=== PATIENT | female | born 1990 | race Caucasian/White ===

== ENCOUNTER → 2019-07-05 | Outpatient (CLI) | payer OTHER | LOC: M.CT 11:23 | DX: R07.9 Chest pain, unspecified (principal); R06.02 Shortness of breath; R00.2 Palpitations; Z88.2 Allergy status to sulfonamides; Z88.8 Allergy status to other drugs, medicaments and biological substances ==

== ENCOUNTER → 2019-09-20 | Outpatient (CLI) | payer OTHER ==
[2019-09-20] VITALS (13 sets, daily range): BP systolic 100–137; BP diastolic 60–86
--- NOTE | 2019-09-28 18:30 | CARD ---
[address] [address] CARDIAC CATH REPORT Name: DEZ ZAFAR Room: [facility]#: [id number] Admission: 09/20/19 Attend Phys: Amol Bass MD Discharge: Date of : 89 Report #: [id number] THIS REPORT FOR: //name// CC: Dr. Andrez Barr DO DATE OF SERVICE: 09/20/2019 REFERRING PHYSICIAN: Peter Barr DO PROCEDURE: Tilt-table test. PROCEDURE DESCRIPTION: After informed consent was obtained, the patient was brought to the cardiac holding area. Orthostatic blood pressures were checked and were unremarkable. The patient was then placed on the tilt table. The tilt table was placed in the 70-degree head upright position. The patient's initial blood pressure was 119/78 mmHg with a pulse rate of 101 beats per minute. The patient was observed for 20 minutes in the 70-degree head upright position. She had no significant change in blood pressure or pulse rate. At the end of an initial 20-minute phase, the patient was given sublingual nitroglycerin. With this, she had a drop in her blood pressure to 100/65 mmHg and an appropriate increase in her heart rate to 138 beats per minute. The patient had some mild feelings of lightheadedness, but no syncope. At the end of 20 minutes, the test was terminated. The patient's blood pressure at this time was 124/60 mmHg with a pulse rate of 88 beats per minute. IMPRESSION: 1. Palpitations. 2. Tilt-table test shows no evidence of vasodepressor syncope. CONCLUSION: This is a normal tilt table response. <ELECTRONICALLY SIGNED> By: Amol Bass MD, FACC 09/28/19 1830 1529 [id number] Bass MD, FACC /nt
== END | disposition home or self-care (01) ==
LOC: M.CL 09:03
DX: R00.2 Palpitations (principal)

== ENCOUNTER → 2019-12-27 | Outpatient (CLI) | payer OTHER ==
[2019-12-27 12:33] LABS: CSF GLUCOSE 61 mg/dl (40-70); CSF PROTEIN 34.6 mg/dl (15-45)
[2019-12-27 13:03] LABS: VOLUME 17 ml
[2019-12-27 13:06] LABS: CSF RBC 3650 /mm3; CSF WBC 1 /mm3 (0-10)
[2019-12-28 02:07] LABS: IgA 109 mg/dL (87-352); IgG 1007 mg/dL (700-1600); IgM 83 mg/dL (26-217)
[2019-12-28 23:06] LABS: GLOBULIN TOTAL 3.4 g/dL (2.2-3.9); M-SPIKE Not Observed g/dL (Not Observed)
[2019-12-31 12:11] LABS: CSF ALBUMIN 10 mg/dL (11-48); CSF IGG INDEX 0.6 (0.0-0.7); CSF IgG 1.4 mg/dL (0.0-8.6); CSF/SERUM ALBUMIN INDEX 2 (0-8)
--- NOTE | 2020-01-04 17:07 | PATH ---
[address] [address] PATHOLOGY RPT PROCEDURE Name: ZAFARDEZ N Room: [facility]#: [id number] Admission: 12/27/19 Date of : 89 Discharge: Report #: [id number] Path Case #: [id number] Note [facility] Accession Number: [id number] TESTS RESULT FLAG UNITS REF RANGE LAB Clinician Provided Cytology Information No. of containers..01 Other (Miscellaneous) Source: CSF DIAGNOSIS: 02 CSF NEGATIVE FOR MALIGNANT CELLS. 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 Signed out by: 02 Sammy Huizar MD, Pathologist NPI- [id number] Performed by: 01 Caron Washington, Driver'S License Reviewing Officer ([facility]) Gross description: 01 2 ML, COLORLESS, CLEAR /LCS 01/03/2020 1822 Local FLAG LEGEND: L-Low Normal,H-High Normal,LL-Alert Low,HH-Alert High <-Panic Low,>-Panic High,A-Abnormal,AA-Critical Abnormal Performed at: [address] [place] [address] Moncho Greer MD, [address] [place] [address] [place] [address] Sammy Huizar MD, Specimen Comment: A courtesy copy of this report has been sent to [phone], [phone]- Specimen Comment: [id number] Specimen Comment: Report sent to / DR HOLT Performed at: [address], [place], [place] [id number] MD Moncho Greer MD Phone: [phone]
== END ==
LOC: M.LAB 12-18 08:40
PROVIDERS: Physical Medicine & Rehabilitation
DX: G93.2 Benign intracranial hypertension (principal); R51 Headache; H54.7 Unspecified visual loss; Z79.899 Other long term (current) drug therapy